=== PATIENT | female | born 1940 ===

== ENCOUNTER 2021-06-22 12:30 | Outpatient (CLI) | payer MEDICARE, SELFPAY ==
--- NOTE | ~2021-06-22 | XR_ITS ---
XR shoulder LT min 2V 06/22/2021 12:47 Indication: Left shoulder pain Procedure: 4 views left shoulder Comparison: 05/26/2021 Findings: There is a mildly displaced left humeral neck fracture no significant soft tissue abnormali ty. No foreign bodies.. 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 Impression: 1: Mildly displaced comminuted left humeral neck fracture. Reviewed, dictated and finalized at location B. HOUSE PICKER Impression: 1: Mildly displaced comminuted left humeral neck fracture.
== END 2021-06-22 12:31 | disposition home or self-care (01) ==
LOC: ANHBWCIMG 12:34
PROVIDERS: PCP Internal Medicine; Visit Provider Orthopaedic Surgery
DX: M25.512 Pain in left shoulder (principal); S42.292A Other displaced fracture of upper end of left humerus, initial encounter for closed fracture
CPT/HCPCS: 73030

== ENCOUNTER 2021-07-20 12:14 | Outpatient (CLI) | payer MEDICARE, SELFPAY ==
--- NOTE | ~2021-07-20 | XR_ITS ---
XR shoulder LT min 2V 07/20/2021 12:29 Indication: Follow-up left humeral fracture Procedure: 3 views left shoulder Comparison: No prior studies for comparison. Findings: There is stable alignment of comminuted left humeral neck fracture with involvement of the greater tuberosity. 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 There is incompl ete osseous union. 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 Reviewed, dictated and finalized at location B. 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
== END 2021-07-20 12:15 | disposition home or self-care (01) ==
PROVIDERS: PCP Internal Medicine; Visit Provider Orthopaedic Surgery
DX: S42.352K Displaced comminuted fracture of shaft of humerus, left arm, subsequent encounter for fracture with nonunion (principal); M19.012 Primary osteoarthritis, left shoulder
CPT/HCPCS: 73030